=== PATIENT | male | born 1980 | race Hispanic/Latino ===

== ENCOUNTER 2023-08-16 17:47 | Emergency (ER) | payer BC ==
[~2023-08-16] VITALS: Ht 175.3 cm; Wt 99.8 kg
[2023-08-16 18:43] VITALS: BP 142/68; PULSE 83; RESP 18
[2023-08-16] MEDS: KETOROLAC 15MG/ML VIAL (15MG/ML) IM ONE (20:21)
[2023-08-16] MEDS ORDERED: IBUP-2070 PO (20:41)
== END 2023-08-16 21:05 | disposition home or self-care (01) ==
LOC: EDH 17:47
DX: S93.112A Dislocation of interphalangeal joint of left great toe, initial encounter (principal); X58.XXXA Exposure to other specified factors, initial encounter; Y93.6A Activity, physical games generally associated with school recess, summer camp and children; Y92.89 Other specified places as the place of occurrence of the external cause; Y99.8 Other external cause status
CPT/HCPCS: 99284; 28660; 73620; 73630; 96372; J1885

== ENCOUNTER 2023-09-23 12:07 | Emergency (ER) | payer BC ==
[~2023-09-23] VITALS: Ht 177.8 cm; Wt 104.3 kg
[~2023-09-23 12:07] MED LIST: IBUP-2070 PO
[2023-09-23] MEDS: KETOROLAC 15MG/ML VIAL (15MG/ML) IM ONE (12:30)
[2023-09-23 12:38] LABS: BASOPHILS # (AUTO) 0.07 K/uL (0.00-0.20); BASOPHILS % (AUTO) 0.6 % (0.0-5.0); EOSINOPHILS # (AUTO) 0.09 K/uL (0.00-0.70); EOSINOPHILS % (AUTO) 0.8 % (0.0-8.0); HEMATOCRIT 44.3 % (42-54); IMMATURE GRANULOCYTE ABSOLUTE 0.06 K/uL (0-1); LYMPHOCYTES # (AUTO) 1.3 K/uL (1.0-4.8); LYMPHOCYTES % (AUTO) 11.4 % (21.0-51.0); MEAN CORPUSCULAR HEMOGLOBIN 32.2 pg (27.0-33.0); MEAN CORPUSCULAR HGB CONC 35.7 g/dL (32.0-36.0); MEAN CORPUSCULAR VOLUME 90.2 fL (79-99); MONOCYTES # (AUTO) 0.9 K/uL (0.1-1.0); MONOCYTES % (AUTO) 7.8 % (3.0-13.0); NEUTROPHILS # (AUTO) 8.6 K/uL (1.8-7.7); NEUTROPHILS % (AUTO) 78.9 % (40.0-77.0); PLATELET COUNT (AUTO) 293 K/uL (130-400); RED BLOOD CELL COUNT(AUTO) 4.91 MIL/uL (4.50-6.20); WHITE BLOOD COUNT (AUTO) 10.9 K/uL (4.8-10.8)
[2023-09-23 12:49] LABS: CREATININE 1.1 mg/dL (0.5-1.3); POTASSIUM 3.4 mmol/L (3.5-5.1)
[2023-09-23 14:15] LABS: APPEARANCE,URINE CLEAR (CLEAR); BILIRUBIN,URINE NEGATIVE (NEGATIVE); COLOR,URINE YELLOW (YELLOW); GLUCOSE, URINE (UA) NEGATIVE (NEGATIVE); KETONES,URINE 10 mg/dL (NEGATIVE); LEUKOCYTE ESTERASE ,URINE 25 Leu/uL (NEGATIVE); NITRATE,URINE NEGATIVE (NEGATIVE); OCCULT BLOOD,URINE NEGATIVE (NEGATIVE); PROTEIN,URINE NEGATIVE (NEGATIVE); UROBILINOGEN,URINE 3 mg/dL (0.2-1.0)
[2023-09-23 14:17] VITALS: BP 122/69; PULSE 73; RESP 16; O2SAT 99
[2023-09-23 14:18] LABS: ADD UA MICROSCOPIC YES
[2023-09-23 14:21] LABS: BACTERIA,URINE RARE /HPF (None Seen); MUCUS,URINE RARE LPF (None Seen); SQUAMOUS EPITHELIAL CELL,UR RARE /HPF (0-2)
[2023-09-23] MEDS ORDERED: CIPR-278 PO (14:27)
[2023-09-23] MEDS ORDERED: KETO10TA2 PO (14:27)
[2023-09-23] MEDS: ORPHENADRINE CITRATE 30 MG/ML ML IM ONE (14:32)
[2023-09-23] MEDS: TRIAMCINOLONE ACETONIDE 40 MG/ML 1ML VIAL IM ONE (14:32)
== END 2023-09-23 14:37 | disposition home or self-care (01) ==
LOC: EDH 12:07
DX: S39.012A Strain of muscle, fascia and tendon of lower back, initial encounter (principal); N39.0 Urinary tract infection, site not specified; X58.XXXA Exposure to other specified factors, initial encounter; Y93.89 Activity, other specified; Y92.89 Other specified places as the place of occurrence of the external cause; Y99.8 Other external cause status
CPT/HCPCS: 99284; 80048; 85025; 87086; 81001; 36415; 96372 ×3; J3301; J1885; J2360